=== PATIENT | male | born 1975 | race Caucasian/White ===

== ENCOUNTER 2019-02-17 14:15 | Emergency (ER) | payer MEDICAID ==
[~2019-02-17] VITALS: Ht 152.4 cm; Wt 72.8 kg
[2019-02-17 14:28] VITALS: BP 142/85; PULSE 91; RESP 18; Ht 152.4 cm; Wt 72.8 kg
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
[2019-02-17] MEDS ORDERED: HYDR-4011 PO (17:02)
[2019-02-17] MEDS ORDERED: IBUP-1542 PO (17:02)
== END 2019-02-17 17:52 | disposition home or self-care (01) ==
LOC: FTE 14:15
DX: S49.91XA Unspecified injury of right shoulder and upper arm, initial encounter (principal); S79.911A Unspecified injury of right hip, initial encounter; S39.92XA Unspecified injury of lower back, initial encounter; W01.0XXA Fall on same level from slipping, tripping and stumbling without subsequent striking against object, initial encounter; Y92.039 Unspecified place in apartment as the place of occurrence of the external cause
CPT/HCPCS: 72100; 73030; 73510; Z7502